=== PATIENT | male | born 2000 | race African-American/Black ===

== ENCOUNTER 2019-03-31 07:51 | Emergency (ER) | payer SELFPAY ==
[2019-03-31 07:54] VITALS: BP 106/64; PULSE 85; TEMP 98.1; BMI 24.4
[2019-03-31] MEDS ORDERED: LIDOCAINE VISCOUS 2% ORAL/TOP 20 ML UNIT-DOSE CUP MM ONE (08:08)
[2019-03-31] MEDS ORDERED: PANTOPRAZOLE 40 MG TABLET (FP) PO ONE (08:08)
--- NOTE | 2019-03-31 08:08 | PDOC ---
*Physical Exam - Vital Signs Last Vital Signs Temp Pulse Resp BP Pulse Ox 98.1 F 85 18 106/64 100 03/31/19 07:52 03/31/19 07:52 03/31/19 07:52 03/31/19 07:52 03/31/19 07:52 Medical Decision Making - Medical Decision Making 03/31/19 08:08 Teo is a 18 yo M p/w epigastric pain, nausea, vomiting s/p having cereal with milk (lactose intolerant) Pt also reports testicular tenderness GI coctail given Scrotal US negative u/s shows acute pathology. pt states feeling better. will discharge home. dietary recommendations discussed Pt seen by Midlevel Provider under my direct supervision Pt interviewed and examined Ancillary studies reviewed I agree with plan as outlined by Midlevel Provider 03/31/19 10:08 03/31/19 10:10 *DC/Admit/Observation/Transfer Diagnosis at time of Disposition: Epigastric abdominal pain - Discharge Dispostion Disposition: HOME Condition at time of disposition: Improved - Prescriptions Prescriptions: Pantoprazole Sodium [Protonix] 40 mg PO DAILY #30 tablet.dr - Referrals Referrals: Torey Jackson MD [Primary Care Provider] - - Patient Instructions Printed Discharge Instructions: DI for Gastroesophageal Reflux Disease (GERD) Additional Instructions: I have enclosed information on acid reflux Take protonix as prescribed - Post Discharge Activity Forms/Work/School Notes: Back to Work
[2019-03-31] MEDS ORDERED: HYOSCYAMINE SULFATE 0.125 MG *ODT PO ONE (08:09)
[2019-03-31] MEDS ORDERED: MAG HYDROX/AL HYDROX/SIMETH 30 ML UNIT-DOSE CUP PO ONE (08:09)
[2019-03-31] MEDS ORDERED: LIDOCAINE VISCOUS 2% ORAL/TOP 20 ML UNIT-DOSE CUP ONE (08:26)
[2019-03-31] MEDS ORDERED: PANTOPRAZOLE 40 MG TABLET (FP) ONE (08:26)
[2019-03-31] MEDS ORDERED: MAG HYDROX/AL HYDROX/SIMETH 30 ML UNIT-DOSE CUP ONE (08:27)
--- NOTE | 2019-03-31 08:46 | PDOC ---
History of Present Illness - General Chief Complaint: Pain Stated Complaint: ABD PAIN Time Seen by Provider: 03/31/19 08:05 History Source: Patient Exam Limitations: No Limitations - History of Present Illness Travel History: No Initial Comments: 03/31/19 08:41 18-year-old male presents to ED with complaints of upper abdominal sharp pain associated with mild nausea. Patient states took tramadol that was given to him by his mother which seemed to worsen his symptoms. Patient states has history of lactose intolerance which he states Thursday night had a bowl of cereal with regular milk and Thursday morning symptoms began. Patient also states had 3 episodes of diarrhea since onset. Patient denies fever, chills, weakness, back pain or urinary complaints. Patient does state intermittent testicular pain for the past 2 weeks without swelling, penile discharge or urinary difficulty. Timing/Duration: reports: changing over time Quality: reports: mild, burning, sharpness, stabbing Abdominal Pain Onset Location: reports: epigastric Pain Radiation: reports: LUQ Activities at Onset: reports: eating Aggravating Factors: improves with: None Alleviating Factors: improves with: None Past History - Travel Traveled outside of the country in the last 30 days: No Close contact w/someone who was outside of country & ill: No - Past Medical History Allergies/Adverse Reactions: Allergies Allergy/AdvReac Type Severity Reaction Status Date / Time No Known Allergies Allergy Verified 03/31/19 07:54 Home Medications: Ambulatory Orders Pantoprazole Sodium [Protonix] 40 mg PO DAILY #30 tablet. 03/31/19 - Suicide/Smoking/Psychosocial Hx Smoking History: Never smoked Have you smoked in the past 12 months: No Information on smoking cessation initiated: No Hx Alcohol Use: No Drug/Substance Use Hx: No Patient Lives Alone: No Lives with/in: parents Review of Systems - Review of Systems Able to Perform ROS?: Yes Constitutional: No: Symptoms Reported HEENTM: No: Symptoms Reported Respiratory: No: Symptoms reported Cardiac (ROS): No: Symptoms Reported ABD/GI: Yes: Nausea, Vomiting, Indigestion. No: Diarrhea : No: Symptoms Reported Integumentary: No: Symptoms Reported Neurological: No: Symptoms reported *Physical Exam - Vital Signs Last Vital Signs Temp Pulse Resp BP Pulse Ox 98.1 F 85 18 106/64 100 03/31/19 07:52 03/31/19 07:52 03/31/19 07:52 03/31/19 07:52 03/31/19 07:52 - Physical Exam General Appearance: Yes: Nourished, Appropriately Dressed HEENT: positive: Pharynx Normal. negative: Pale Conjunctivae Neck: positive: Supple Respiratory/Chest: positive: Lungs Clear, Normal Breath Sounds. negative: Respiratory Distress, Accessory Muscle Use Cardiovascular: positive: Regular Rhythm, Regular Rate. negative: Murmur Gastrointestinal/Abdominal: positive: Soft, Tenderness (epigastric) Male Genitalia: positive: normal genitalia, normal prostate, testicular tenderness (mild left). negative: discharge, testicular mass, epididymus tender Musculoskeletal: negative: CVA Tenderness Extremity: positive: Normal Capillary Refill Integumentary: positive: Normal Color, Warm, Moist Neurologic: positive: Normal Mood/Affect, Motor Strength 5/5 (ambulatory) ED Treatment Course - RADIOLOGY Radiology Studies Ordered: Category Date Time Status SCROTUM AND CONTENTS US [US] Stat Ultrasound 03/31/19 08:07 Ordered Medical Decision Making - Medical Decision Making 03/31/19 08:47 CC: epigastric pain w/ n/v. began after having cereal with milk ( lactose intolerant) Exam: epigastric tenderness with left testicular tenderness Paln: gi cocktail, po protonix and testicular u/s 03/31/19 09:51 u/s shows acute pathology. pt states feeling better. will discharge home. dietary recommendations discussed *DC/Admit/Observation/Transfer Diagnosis at time of Disposition: Epigastric abdominal pain - Discharge Dispostion Disposition: HOME Condition at time of disposition: Improved - Prescriptions Prescriptions: Pantoprazole Sodium [Protonix] 40 mg PO DAILY #30 tablet.dr - Referrals Referrals: Torey Jackson MD [Primary Care Provider] - - Patient Instructions Printed Discharge Instructions: DI for Gastroesophageal Reflux Disease (GERD) Additional Instructions: I have enclosed information on acid reflux Take protonix as prescribed - Post Discharge Activity Forms/Work/School Notes: Back to Work
== END 2019-03-31 10:09 | disposition home or self-care (01) ==
LOC: JER 07:51
DX: K21.9 Gastro-esophageal reflux disease without esophagitis (principal); N50.82 Scrotal pain
CPT/HCPCS: 76870-TC; 99281-25

== ENCOUNTER 2019-04-23 08:42 | Emergency (ER) | payer OTHER ==
[2019-04-23 08:51] VITALS: BP 108/64; PULSE 50; TEMP 97.7; BMI 17.6
[2019-04-23] MEDS ORDERED: SODIUM CHLORIDE 1,000 ML IV STA (09:45)
--- NOTE | 2019-04-23 09:45 | PDOC ---
History of Present Illness - General Chief Complaint: Pain, Acute Stated Complaint: ABD PAIN Time Seen by Provider: 04/23/19 09:23 History Source: Patient Exam Limitations: No Limitations - History of Present Illness Initial Comments: 04/23/19 09:33 18 yo male pmh of lactose intolerance and recent gastritis? presents to the ED for 1 episode of NB/NB vomiting and left sided abdominal and flank/back pain this morning. Pt states he had epigastric abdominal pain 1 month ago, presented to [facility], given Protonix with no relief of pain. 2 weeks ago pt went to [facility] for similar pain, ab/pel ct done, neg, told he had gastritis/ inflammation of the stomach, given antibiotics and felt better, however only completed 11 of the 14 days before stopping meds. Pt states pain today is different then recent abdominal pain. Pain described as sharp with more left flank and back than epigastric region, made worse with activity and not related to eating or drinking. Pt admits to constipation with hard stools, no blood. Denies recent sick contacts, travel, increased urinary frequency/blood/pain on urination, CP, SOB. Pt has hx of lactose intolerance, does not take meds. Recently ate and drank dairy products however, quality, location of pain along with vomiting is abnormal rxn for him Past History - Past Medical History Allergies/Adverse Reactions: Allergies Allergy/AdvReac Type Severity Reaction Status Date / Time No Known Allergies Allergy Verified 04/23/19 08:53 Home Medications: Ambulatory Orders Pantoprazole Sodium [Protonix] 40 mg PO DAILY #30 tablet. 03/31/19 COPD: No GI Disorders: Yes (gastritis) - Suicide/Smoking/Psychosocial Hx Smoking History: Current every day smoker Have you smoked in the past 12 months: Yes Number of Cigarettes Smoked Daily: 6 Information on smoking cessation initiated: No Hx Alcohol Use: No Drug/Substance Use Hx: Yes *Physical Exam - Vital Signs Last Vital Signs Temp Pulse Resp BP Pulse Ox 97.7 F 50 L 18 108/64 98 04/23/19 08:49 04/23/19 08:49 04/23/19 08:49 04/23/19 08:49 04/23/19 08:49 ED Treatment Course - LABORATORY CBC & Chemistry Diagram: 04/23/19 09:50 04/23/19 09:50 *DC/Admit/Observation/Transfer Diagnosis at time of Disposition: Renal stone - Discharge Dispostion Disposition: HOME Condition at time of disposition: Stable Decision to Admit order: No - Referrals Referrals: Torey Jackson MD [Primary Care Provider] - Marco Li MD [Staff Physician] - - Patient Instructions Printed Discharge Instructions: Kidney Stones -- Adult Additional Instructions: Please see your Primary Doctor Doctor within the next 48 hours. See the Urologist referred to you and make an appointment. Take the medication for pain as prescribed. Return to the ER for new or concerning symptoms including but not limited to: high fevers, nausea/vomiting, back pain, inability to eat or drink. Increase your water intake. Thank you - Post Discharge Activity
[2019-04-23] MEDS ORDERED: ONDANSETRON 4 MG/2 ML VIAL IVPUSH ONE (09:48)
[2019-04-23] MEDS ORDERED: ONDANSETRON 4 MG/2 ML VIAL ONE (09:56)
[2019-04-23 10:18] LABS: BASO % 0.3 % (0-2.0); EOS % 3.5 % (0-4.5); HEMATOCRIT 40.4 % (35.4-49); HEMOGLOBIN 13.7 GM/dL (11.7-16.9); LYMPH % 18.3 % (8-40); MCH 30.9 pg (25.7-33.7); MCHC 33.8 g/dl (32.0-35.9); MEAN CELL VOLUME 91.4 fl (80-96); MEAN PLT VOLUME 7.8 fl (7.5-11.1); MONO % 5.2 % (3.8-10.2); NEUT % 72.7 % (42.8-82.8); RBC 4.42 M/mm3 (4.00-5.60); RDW 13.4 % (11.9-15.9); WHITE BLOOD COUNT 5.8 K/mm3 (4.0-10.0)
[2019-04-23 10:38] LABS: PLATELET COUNT 169 K/MM3 (134-434)
[2019-04-23 10:47] LABS: BILIRUBIN,TOTAL 0.5 mg/dL (0.2-1); BLOOD UREA NITROGEN 12.9 mg/dL (7-18); CALCIUM 8.9 mg/dL (8.5-10.1); CREATININE 0.9 mg/dL (0.55-1.3); POTASSIUM 3.9 mmol/L (3.5-5.1); TOT PROT 6.8 g/dl (6.4-8.2)
--- NOTE | 2019-04-23 11:40 | PDOC ---
Documentation entered by Becca Green SCRIBE, acting as scribe for Pranay Dove MD. Pranay Dove MD: This documentation has been prepared by the Peter cedeño Brenda, SCRIBE, under my direction and personally reviewed by me in its entirety. I confirm that the documentation accurately reflects all work, treatment, procedures, and medical decision making performed by me. Attending Attestation - Resident Resident Name: George Lornezana - ED Attending Attestation I have performed the following: I have examined & evaluated the patient, The case was reviewed & discussed with the resident, I agree w/resident's findings & plan, Exceptions are as noted - HPI HPI: 04/23/19 11:07 The patient is a 18 year old male, with a significant PMH of lactose intolerance and possible gastritis, who presents to the emergency department with abdominal pain since this morning and 1 episode of NBNB vomiting. The patient reports that his abdominal pain is diffuse but more focused on the left side. He reports his pain to be sharp and crampy. The patient reports having ice cream 2 days ago and cereal with milk last night. Patient also reports constipation but is normal for the pt. The patient also notes having epigastric pain 1 month ago, while at [facility], given medication to no relief. He also notes going to [facility] 2 weeks ago for a similar pain, and was diagnosed with gastritis/inflammation of the stomach. The patient denies chest pain, shortness of breath, headache and dizziness. Denies fever, chills, diarrhea . Denies any urinary symptoms. Denies any other symptoms. Allergies: NKA Past surgical history: Not reported Social history: Current everyday smoker, about 6 cigarettes per day. Denies alcohol or drug use. .Lives with parents. PCP: Dr. Torey Jackson - Physicial Exam PE: 04/23/19 10:51 GENERAL: The patient is awake, alert, and fully oriented, Nontoxic - in no acute distress. HEAD: Normocephalic, atraumatic. EYES: extraocular movements intact, sclera anicteric, conjunctiva clear. ENT: Normal voice, Moist mucous membranes. NECK: Normal range of motion, supple LUNGS: Breath sounds equal, clear to auscultation bilaterally. No wheezes, no rhonchi, no rales. HEART: Regular rate and rhythm, normal S1 and S2 without murmur, rub or gallop. ABDOMEN: Soft, mild diffuse tenderness, mod L cva ttp, : no testicular tenderness, normal testicular lie b/l EXTREMITIES: Normal range of motion, no edema. NEUROLOGICAL: No facial assymetry, Normal speech, moving all 4 ext spontaneously and symmetrically PSYCH: Normal mood, normal affect. SKIN: Warm, Dry, normal turgor, - Medical Decision Making 04/23/19 10:29 18y M hx of lactose intolerance, recent gastritis dx presents with abd pain that is diffuse, crampy, since eysterday. Pt notes he was in our ED dx with gastritis, then went to [facility] and received a CT that was normal, was dx with 'inflammation', was doing ok until yesterday when he started having abd pain again associated with vomiting x 1 day today that was nbnb and looked like pzza. Pt notes he had ice cream 2 days ago and then had pizza yetserday prior to onset of his pain. Pt notes he frequently has abd pain related to eating dairy in the past, but more frequently as he has been having increased dietary indiscretions. Pt dneis any fever/chills, dysuria, hematuria, bpr, diarrhea, melena, scrotal or testicular pain. No prior abd surgery Pt was given GI Fu at [place] but hasnt yet followed up 04/23/19 10:58 suspect his abd pain may be related to his dietary indiscrtions consider possible kideny stone as he had some L cva tenderness will ck cbc, cmp, lipase, ua to screen for UTI/hematuria will reasesss 04/23/19 14:35 pts ua noted for hematuria CT renal stone noted for 4mm stone in proximal ureter pts pain is controlled will dc with urology fu I discussed the physical exam findings, ancillary test results and final diagnoses with the patient. I answered all of the patient's questions. The patient was satisfied with the care received and felt comfortable with the discharge plan and treatment plan. The patient will call their primary care physician within 24 hours to arrange follow-up and will return to the Emergency Department with any new, persistent or worsening symptoms.
[2019-04-23 12:16] LABS: EPI CELLS 1.3 /HPF (0-5/HPF); HYALINE CASTS 2 /lpf (0-8); PH,URINE 6.5 (5.0-8.0); URINE APPEARANCE CLEAR; URINE BILIRUBIN NEGATIVE (NEGATIVE); URINE COLOR YELLOW; URINE GLUCOSE (UA) NEGATIVE (NEGATIVE); URINE KETONE NEGATIVE (NEGATIVE); URINE LEUK ESTERASE 1+ (NEGATIVE); URINE NITRITE NEGATIVE (NEGATIVE); URINE PROTEIN NEGATIVE (NEGATIVE); URINE RBC 205 /hpf (0-4); URINE WBC 6 /hpf (0-5)
== END 2019-04-23 14:49 | disposition home or self-care (01) ==
LOC: JER 08:42
PROC: 3E033NZ Introduction of Analgesics, Hypnotics, Sedatives into Peripheral Vein, Percutaneous Approach (ICD-10-PCS; principal; 2019-04-23)
PROC: 3E033GC Introduction of Other Therapeutic Substance into Peripheral Vein, Percutaneous Approach (ICD-10-PCS; 2019-04-23)
DX: N20.0 Calculus of kidney (principal); K29.70 Gastritis, unspecified, without bleeding
CPT/HCPCS: 36415; 74176-TC; 80053; 81003; 83690; 85025; 87086; 96361; 96374; 99283-25; J7030

== ENCOUNTER 2019-05-31 00:57 | Emergency (ER) | payer OTHER ==
[2019-05-31 01:43] VITALS: TEMP 98.1
--- NOTE | 2019-05-31 02:17 | PDOC ---
History of Present Illness - General Chief Complaint: Hematuria Stated Complaint: BLOOD IN URINE Time Seen by Provider: 05/31/19 01:57 - History of Present Illness Initial Comments: 05/31/19 05:00 18-year-old male with past medical history of kidney stone one month ago complaining of left flank pain with one episode of hematuria yesterday afternoon. Patient reports slight pain on urination. Denies fevers/chills/nausea , vomiting, pus discharge. Past History - Past Medical History Allergies/Adverse Reactions: Allergies Allergy/AdvReac Type Severity Reaction Status Date / Time No Known Allergies Allergy Verified 05/31/19 01:30 Home Medications: Ambulatory Orders Pantoprazole Sodium [Protonix] 40 mg PO DAILY #30 tablet. 03/31/19 Oxycodone HCl/Acetaminophen [Percocet 5-325 mg Tablet -] 1 combo PO Q6H PRN #10 tablet MDD 4 04/23/19 Tamsulosin HCl [Flomax] 0.4 mg PO DAILY #7 capsule 04/23/19 Ibuprofen 600 mg PO QID PRN #20 tablet 05/31/19 COPD: No GI Disorders: Yes (gastritis) - Suicide/Smoking/Psychosocial Hx Smoking History: Current some day smoker Have you smoked in the past 12 months: Yes Number of Cigarettes Smoked Daily: 6 Information on smoking cessation initiated: No Hx Alcohol Use: No Drug/Substance Use Hx: No Review of Systems - Review of Systems Able to Perform ROS?: Yes Is the patient limited [place] proficient: No Constitutional: No: Symptoms Reported, See HPI, Chills, Diaphoresis, Fever, Loss of Appetite, Malaise, Night Sweats, Weakness, Weight Stable, Unintentional Wgt. Loss, Unexplained wgt Loss, Other : Yes: Flank Pain, Hematuria Musculoskeletal: No: Symptoms Reported, See HPI, Back Pain, Gout, Joint Pain, Joint Swelling, Muscle Pain, Muscle Weakness, Neck Pain, Joint Stiffness, Other *Physical Exam - Vital Signs Last Vital Signs Temp Pulse Resp BP Pulse Ox 98.1 F 82 14 112/63 99 05/31/19 00:57 05/31/19 00:57 05/31/19 00:57 05/31/19 00:57 05/31/19 00:57 - Physical Exam General Appearance: Yes: Appropriately Dressed Respiratory/Chest: positive: Lungs Clear, Normal Breath Sounds Musculoskeletal: positive: CVA Tenderness (L) Extremity: positive: Normal Capillary Refill, Normal Inspection, Normal Range of Motion Integumentary: positive: Normal Color, Dry, Warm Neurologic: positive: Fully Oriented, Alert, Normal Mood/Affect ED Treatment Course - LABORATORY CBC & Chemistry Diagram: 05/31/19 02:32 05/31/19 02:32 Progress Note - Progress Note Progress Note: A:flank pain/ hematuria P: CBC CMP IVF toradol UA UCX spiral CT: 4 mm retroperitoneal calcification upper left pelvis could represent a phlebolith or possibly a ureteral stone. 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 No nephrolithiasis or hydronephrosis bilaterally. No bladder calculi. Unremarkable pancreas and gallbladder. No bowel obstruction, colitis or free air. Normal appendix. Negligible ascites lower pelvis. *DC/Admit/Observation/Transfer Diagnosis at time of Disposition: Kidney stone on left side - Discharge Dispostion Disposition: HOME Condition at time of disposition: Fair - Prescriptions Prescriptions: Ibuprofen 600 mg PO QID PRN #20 tablet PRN Reason: Pain - Referrals Referrals: Torey Jackson MD [Primary Care Provider] - Bronson Farias MD [Staff Physician] - - Patient Instructions Printed Discharge Instructions: Kidney Stones -- Adult Additional Instructions: Drink plenty of fluids Take Flomax as prescribed Take ibuprofen every 6 hours as needed for [id number] pain Follow-up with a urologist as soon as possible Return to the emergency room if symptoms worsen - Post Discharge Activity Forms/Work/School Notes: Back to Work
[2019-05-31] MEDS ORDERED: SODIUM CHLORIDE 1,000 ML IV STA (02:18)
--- NOTE | 2019-05-31 02:23 | PDOC ---
*Physical Exam - Vital Signs Last Vital Signs Temp Pulse Resp BP Pulse Ox 98.1 F 82 14 112/63 99 05/31/19 00:57 05/31/19 00:57 05/31/19 00:57 05/31/19 00:57 05/31/19 00:57 ED Treatment Course - LABORATORY CBC & Chemistry Diagram: 05/31/19 02:32 05/31/19 02:32 Medical Decision Making - Medical Decision Making 05/31/19 02:23 Patient seen by the advanced practice provider under my direct supervision. Ancillary testing reviewed as necessary. I agree with plan as outlined by the advanced practice provider. *DC/Admit/Observation/Transfer Diagnosis at time of Disposition: Kidney stone on left side - Discharge Dispostion Disposition: HOME Condition at time of disposition: Fair - Prescriptions Prescriptions: Ibuprofen 600 mg PO QID PRN #20 tablet PRN Reason: Pain - Referrals Referrals: Bronson Farias MD [Staff Physician] - Torey Jackson MD [Primary Care Provider] - - Patient Instructions Printed Discharge Instructions: Kidney Stones -- Adult Additional Instructions: Drink plenty of fluids Take Flomax as prescribed Take ibuprofen every 6 hours as needed for [id number] pain Follow-up with a urologist as soon as possible Return to the emergency room if symptoms worsen - Post Discharge Activity Forms/Work/School Notes: Back to Work
[2019-05-31 03:01] LABS: BASO % 0.6 % (0-2.0); EOS % 2.8 % (0-4.5); HEMATOCRIT 44.4 % (35.4-49); HEMOGLOBIN 14.8 GM/dL (11.7-16.9); MCH 30.6 pg (25.7-33.7); MCHC 33.4 g/dl (32.0-35.9); MEAN CELL VOLUME 91.8 fl (80-96); MEAN PLT VOLUME 8.3 fl (7.5-11.1); MONO % 5.4 % (3.8-10.2); NEUT % 53.2 % (42.8-82.8); PLATELET COUNT 176 K/MM3 (134-434); RBC 4.84 M/mm3 (4.00-5.60); RDW 13.3 % (11.9-15.9); WHITE BLOOD COUNT 5.4 K/mm3 (4.0-10.0)
[2019-05-31 03:06] LABS: EPI CELLS 0.6 /HPF (0-5/HPF); HYALINE CASTS 5 /lpf (0-8); URINE APPEARANCE CLEAR; URINE BACTERIA 0.8 /hpf (NEGATIVE); URINE BILIRUBIN NEGATIVE (NEGATIVE); URINE COLOR YELLOW; URINE GLUCOSE (UA) NEGATIVE (NEGATIVE); URINE KETONE TRACE (NEGATIVE); URINE LEUK ESTERASE TRACE (NEGATIVE); URINE NITRITE NEGATIVE (NEGATIVE); URINE PROTEIN NEGATIVE (NEGATIVE); URINE RBC 16 /hpf (0-4); URINE WBC 6 /hpf (0-5)
[2019-05-31 03:29] LABS: ALBUMIN 4.5 g/dl (3.4-5.0); BILIRUBIN,TOTAL 0.4 mg/dL (0.2-1); BLOOD UREA NITROGEN 8.9 mg/dL (7-18); CALCIUM 9.5 mg/dL (8.5-10.1); CREATININE 1.1 mg/dL (0.55-1.3); POTASSIUM 3.8 mmol/L (3.5-5.1); TOT PROT 7.6 g/dl (6.4-8.2)
[2019-05-31] MEDS ORDERED: KETOROLAC TROMETHAMINE 30 MG/1 ML VIAL IVPUSH ONE (03:33)
[2019-05-31] MEDS ORDERED: KETOROLAC TROMETHAMINE 30 MG/1 ML VIAL ONE (04:16)
[2019-05-31 05:38] VITALS: BP 112/68; PULSE 85
== END 2019-05-31 05:40 | disposition home or self-care (01) ==
LOC: JER 00:57
PROC: 3E0337Z Introduction of Electrolytic and Water Balance Substance into Peripheral Vein, Percutaneous Approach (ICD-10-PCS; principal; 2019-05-31)
DX: N20.0 Calculus of kidney (principal)
CPT/HCPCS: 36415; 74176-TC; 80053; 81003; 85025; 87086; 96360; 99282-25; J7030

== ENCOUNTER 2021-03-28 23:51 | Emergency (ER) | payer OTHER ==
[2021-03-29 00:04] VITALS: BP 120/69; PULSE 61; TEMP 98.5; BMI 19.6
[2021-03-29] MEDS ORDERED: ACETAMINOPHEN 500 MG TABLET (FP) PO ONE (00:24)
[2021-03-29] MEDS ORDERED: ACETAMINOPHEN 325 MG TABLET (FP) ONE ×2 (00:48→01:05)
== END 2021-03-29 01:13 | disposition left against medical advice (07) ==
LOC: JER 23:51
DX: Z04.1 Encounter for examination and observation following transport accident (principal)
CPT/HCPCS: 99281-25

== ENCOUNTER 2021-04-04 19:24 | Emergency (ER) | payer OTHER ==
[2021-04-04 19:30] VITALS: BP 104/67; PULSE 60; TEMP 98.4; BMI 20.3
[2021-04-04] MEDS ORDERED: IBUPROFEN 600 MG TABLET (FP) PO ONE ×2 (20:06→20:29)
== END 2021-04-04 20:48 | disposition home or self-care (01) ==
LOC: JERFT 19:24 → JER 19:24 → JERFT 20:48
DX: M79.605 Pain in left leg (principal)
CPT/HCPCS: 73562-TC-LT-FY; 73590-TC-LT-FY; 73610-TC-LT-FY; 73630-TC-LT; 99284-25

== ENCOUNTER 2021-07-25 06:11 | Emergency (ER) | payer OTHER ==
[2021-07-25] MEDS ORDERED: ONDANSETRON 4 MG/2 ML VIAL ONE (06:20)
[2021-07-25] MEDS ORDERED: morphine SULFATE 4 MG/ML VIAL ONE (06:20)
[2021-07-25] MEDS ORDERED: CEFAZOLIN 1 GM in DEXTROSE 5%-WATER - 50 ML IVPB ONE (06:21)
[2021-07-25] MEDS ORDERED: ONDANSETRON 4 MG/2 ML VIAL IVPUSH ONE (06:22)
[2021-07-25] MEDS ORDERED: morphine CARPU-JECT 4 MG/1 ML DISP.SYRIN IVPUSH ONE (06:22)
[2021-07-25] MEDS ORDERED: DIPHTH,PERTUSS(ACELL),TET 0.5 ML DISP.SYRIN IM ONE ×2 (06:22→06:35)
[2021-07-25] MEDS ORDERED: LACTATED RINGERS SOLUTION 1000 ML INFUS.BAG IV ONE (06:22)
[2021-07-25 06:29] VITALS: BP 117/65; PULSE 64; BMI 19.0
[2021-07-25] MEDS ORDERED: CEFAZOLIN 1 GM/D5W 1 GM/50 ML BAG ONE (06:34)
[2021-07-25 07:10] LABS: INR 1.07 (0.83-1.09)
[2021-07-25 07:13] LABS: ACTIVATED PTT 25.2 SECONDS (25.2-36.5)
[2021-07-25 07:14] LABS: BASO % 0.2 % (0-2.0); EOS % 0.2 % (0-4.5); HEMATOCRIT 45.5 % (35.4-49); HEMOGLOBIN 15.4 GM/dL (11.7-16.9); MCH 32.2 pg (25.7-33.7); MCHC 33.9 g/dl (32.0-35.9); MEAN CELL VOLUME 95.1 fl (80-96); MEAN PLT VOLUME 8.3 fl (7.5-11.1); MONO % 4.6 % (3.8-10.2); PLATELET COUNT 198 10^3/uL (134-434); RBC 4.78 M/mm3 (4.00-5.60); RDW 12.9 % (11.9-15.9); WHITE BLOOD COUNT 10.7 K/mm3 (4.0-10.0)
[2021-07-25 07:26] LABS: ALBUMIN 4.8 g/dl (3.4-5.0); BLOOD UREA NITROGEN 9.3 mg/dL (7-18); CALCIUM 9.4 mg/dL (8.5-10.1)
[2021-07-25 07:30] LABS: CREATININE 1.1 mg/dL (0.55-1.3)
[2021-07-25 07:31] LABS: BILIRUBIN,TOTAL 0.4 mg/dL (0.2-1); TOT PROT 8.1 g/dl (6.4-8.2)
[2021-07-25] MEDS ORDERED: ACETAMINOPHEN 1000 MG/100 ML VIAL (NON FORMULARY) IVPB ONE (07:35)
[2021-07-25] MEDS ORDERED: ACETAMINOPHEN INJECTION 100 ML IVPB ONE (07:42)
[2021-07-25] MEDS ORDERED: LIDOCAINE HCL 2% (20ML MULTI-DOSE VIAL) ONE (08:57)
[2021-07-25] MEDS ORDERED: LIDOCAINE HCL 2% (20ML MULTI-DOSE VIAL) NR ONE (08:57)
== END 2021-07-25 12:35 | disposition home or self-care (01) ==
LOC: JER 06:11
PROC: 3E0234Z Introduction of Serum, Toxoid and Vaccine into Muscle, Percutaneous Approach (ICD-10-PCS; principal; 2021-07-25)
PROC: 3E03329 Introduction of Other Anti-infective into Peripheral Vein, Percutaneous Approach (ICD-10-PCS; 2021-07-25)
PROC: 3E033NZ Introduction of Analgesics, Hypnotics, Sedatives into Peripheral Vein, Percutaneous Approach (ICD-10-PCS; 2021-07-25)
PROC: 3E033GC Introduction of Other Therapeutic Substance into Peripheral Vein, Percutaneous Approach (ICD-10-PCS; 2021-07-25)
PROC: 3E033GC Introduction of Other Therapeutic Substance into Peripheral Vein, Percutaneous Approach (ICD-10-PCS; 2021-07-25)
PROC: 3E033GC Introduction of Other Therapeutic Substance into Peripheral Vein, Percutaneous Approach (ICD-10-PCS; 2021-07-25)
DX: M25.572 Pain in left ankle and joints of left foot (principal); V29.9XXA Motorcycle rider (driver) (passenger) injured in unspecified traffic accident, initial encounter; Y92.9 Unspecified place or not applicable
CPT/HCPCS: 36415; 70450-TC; 70486-TC; 71260-TC; 72125-TC; 72128-TC; 72131-TC; 73590-TC-LT-FY; 73610-TC-LT-FY; 73630-TC-LT; 74177-TC; 80053; 80307; 85025; 85610; 85730; 86850; 86900; 86901; 93005; 93010; 99285-25; J0131; Q9967

== ENCOUNTER 2021-08-09 14:06 | Emergency (ER) | payer OTHER ==
[2021-08-09 14:44] VITALS: BP 120/73; PULSE 89; TEMP 98.3; BMI 19.1
== END 2021-08-09 16:02 | disposition home or self-care (01) ==
LOC: JERFT 14:06
DX: Z48.02 Encounter for removal of sutures (principal)
CPT/HCPCS: 73610-TC-LT-FY; 73630-TC-LT; 99281-25

== ENCOUNTER 2021-08-23 12:23 | Emergency (ER) | payer OTHER ==
[2021-08-23 12:40] VITALS: BP 122/70; PULSE 80; TEMP 98.6; BMI 19.1
[2021-08-23] MEDS ORDERED: IBUPROFEN 600 MG TABLET (FP) PO ONE ×2 (14:11→14:13)
== END 2021-08-23 14:24 | disposition home or self-care (01) ==
LOC: JERFT 12:23
DX: M25.572 Pain in left ankle and joints of left foot (principal); Z47.89 Encounter for other orthopedic aftercare
CPT/HCPCS: 99282-25